=== PATIENT | male | born 1990 | race Caucasian/White ===

== ENCOUNTER 2018-02-06 13:25 | Emergency (ER) | payer SELFPAY ==
[2018-02-06] MEDS ORDERED: Lidocaine 1% MPF 2 ML VIAL ONE (14:01)
[2018-02-06] MEDS ORDERED: cefTRIAXone\\ROCEPHIN 250 MG VIAL ONE (14:01)
[2018-02-06] MEDS ORDERED: Azithromycin 250 MG TAB ONE (14:01)
[2018-02-06] MEDS ORDERED: metroNIDAZOLE 500 MG TAB ONE (14:01)
[2018-02-06 14:15] LABS: Bilirubin Negative (Negative); Blood, Urine Moderate (Negative); Clarity Cloudy (Clear); Glucose, Urine (Dipstick) Negative (Negative); Leukocyte Large (Negative); Nitrite Negative (Negative); Protein, Urine (Dipstick) 100 mg/dL (Neg-Trace); Specific Gravity, Urine 1.025 (1.005-1.030); Urobilinogen 0.2 mg/dL (0.2-1.0); pH, Urine 5.5 (5.0-9.0)
[2018-02-06 14:21] LABS: Bacteria/HPF 2+ HPF (None Seen); Squamous Epithelial 0-3 HPF (0-3)
== END 2018-02-06 14:57 | disposition home or self-care (01) ==
LOC: SCSER 13:25
DX: N34.2 Other urethritis (principal); Z71.6 Tobacco abuse counseling; F32.9 Major depressive disorder, single episode, unspecified; F17.210 Nicotine dependence, cigarettes, uncomplicated
CPT/HCPCS: 81003; 81015; 87086; 87491; 87591; 96372; 99406; J0696